=== PATIENT | female | born 2000 | race Caucasian/White ===

== ENCOUNTER 2020-12-11 17:22 | Inpatient (IN) | payer OTHER ==
[~2020-12-11] VITALS: Ht 172.7 cm; Wt 113.9 kg
[2020-12-11 18:09] LABS: HEMOGLOBIN 11.6 gm/dl (12.3-15.3); RED BLOOD COUNT 4.03 M/UL (4.00-5.10); WHITE BLOOD COUNT 12.4 K/UL (4.5-11.0)
[2020-12-11] MEDS ORDERED: PRENATAL TABLE1 EAC1 PO (19:02)
[2020-12-12] MEDS ORDERED: DOCUSATE SODIU100 MG PO (20:20)
[2020-12-12] MEDS ORDERED: TYLENOL EXTRA500 MG PO (20:20)
[2020-12-12] MEDS ORDERED: IBUPROFEN800 MG PO (20:20)
[2020-12-13 05:58] LABS: HEMOGLOBIN 10.3 gm/dl (12.3-15.3)
== END 2020-12-14 16:45 | disposition home or self-care (01) | DRG 806 ==
LOC: GENOP 17:22 → OB 17:33
PROVIDERS: Obstetrics & Gynecology; ADMIT Obstetrics & Gynecology
PROC: 0U7C7ZZ Dilation of Cervix, Via Natural or Artificial Opening (ICD-10-PCS; 2020-12-11)
PROC: 10E0XZZ Delivery of Products of Conception, External Approach (ICD-10-PCS; principal; 2020-12-12)
PROC: 0KQM0ZZ Repair Perineum Muscle, Open Approach (ICD-10-PCS; 2020-12-12)
PROC: 3E033VJ Introduction of Other Hormone into Peripheral Vein, Percutaneous Approach (ICD-10-PCS; 2020-12-12)
PROC: 10907ZC Drainage of Amniotic Fluid, Therapeutic from Products of Conception, Via Natural or Artificial Opening (ICD-10-PCS; 2020-12-12)
PROC: 3E0234Z Introduction of Serum, Toxoid and Vaccine into Muscle, Percutaneous Approach (ICD-10-PCS; 2020-12-14)
DX: O48.0 Post-term pregnancy (principal); O41.03X0 Oligohydramnios, third trimester, not applicable or unspecified; Z37.0 Single live birth; Z3A.40 40 weeks gestation of pregnancy; Z23 Encounter for immunization; O70.1 Second degree perineal laceration during delivery; O99.214 Obesity complicating childbirth; Z20.822 Contact with and (suspected) exposure to COVID-19
CPT/HCPCS: 36415; 51702; 81001; 82800; 85014; 85018; 85025; 90715; J2590; J2795; J7120; U0002